=== PATIENT | male | born 1985 | race Two or more races ===

== ENCOUNTER 2024-05-12 17:55 | Emergency (ER) | payer OTHER ==
[~2024-05-12] VITALS: Ht 167.6 cm; Wt 78.0 kg
[2024-05-12 19:34] LABS: HEMATOCRIT 44.7 % (39.0-48.0); HEMOGLOBIN 15.1 g/dL (13-16.00); MEAN CELL VOLUME 85.2 fL (80.0-100.00); MEAN CORPUSCULAR HEMOGLOBIN 28.8 pg (27.00-32.0); MEAN CORPUSCULAR HGB CONC 33.8 g/dl (32.0-36.0); PLATELET COUNT 303 K/uL (150-450); RED BLOOD COUNT 5.25 M/uL (4.00-6.00); RED CELL DISTRIBUTION WIDTH 14.6 % (11.5-14.5)
[2024-05-12 20:12] LABS: CALCIUM 9.6 mg/dL (8.5-10.1); CREATININE SERUM 1.16 mg/dL (0.70-1.30); GFR 69.73; POTASSIUM 4.38 mEq/L (3.5-5.1)
== END 2024-05-12 21:52 | disposition home or self-care (01) ==
LOC: ER 17:57
PROVIDERS: General Practice
DX: R25.2 Cramp and spasm (principal)